=== PATIENT | female | born 1950 | race Caucasian/White ===

== ENCOUNTER → 2016-05-19 | Outpatient (CLI) | payer BC ==
[~2016-05-19] MED LIST: CALC600T9 PO; CHOL20007 PO; EVS60 PO; FSM70 PO; LEVO50TA PO; LRT5 PO; PRMVC TOP; SYN75 PO
--- NOTE | 2016-05-19 13:24 | MAMMOGRAPHY REPORT ---
BILATERAL DIGITAL SCREENING MAMMOGRAM WITH CAD: 05/19/2016 CLINICAL HISTORY: Routine screening examination. TECHNIQUE: Bilateral CC and MLO 2-D digital mammograms were obtained. Current study was also evalua loretta with a Computer Aided Detection (CAD) system. COMPARISON: Comparison is made to exams dated: 05/02/2015 mammogram, 06/09/2012 mammogram, 10/15/2009 [facility], 11/21/2008, and 10/05/2006. BREAST COMPOSITION: The tissue of both breasts is heterogeneously dense, which may obscure small ma sses. FINDINGS: There is an ovoid dense 2.2 cm mass incompletely visualized in the far superior, far post erior left breast, projecting over the pectoralis muscle on the MLO view that could represent an enl arged lymph node. Further evaluation with targeted left axillary ultrasound is recommended. No other suspicious mass, architectural distortion or cluster of microcalcifications is seen in the breasts. IMPRESSION: ACR BI-RADS CATEGORY 0: INCOMPLETE EVALUATION: NEED ADDITIONAL IMAGING EVALUATION The incompletely visualized ovoid dense 2.2 cm mass in the left axilla needs additional evaluation. The patient will be called to schedule an appointment. Approximately 10% of breast cancers are not detected with mammography. A negative mammographic repor t should not delay biopsy if a clinically suggestive mass is present. Izabela Rodriguez M.D. ay/:05/19/2016 07:56:16 Household Appliance Installer: Apurva [place])([place]), [facility] letter sent: Addl Imaging 0 BI-RADS Code: ACR BI-RADS Category 0: Incomplete Evaluation: Need Additional Imaging Evaluation
== END | disposition home or self-care (01) ==
LOC: C.MAMM 07:34
PROVIDERS: ATTEND Family Medicine
DX: Z12.31 Encounter for screening mammogram for malignant neoplasm of breast (principal); N63 Unspecified lump in breast

== ENCOUNTER → 2016-06-02 | Outpatient (CLI) | payer BC ==
--- NOTE | 2016-06-02 13:07 | MAMMOGRAPHY REPORT ---
ULTRASOUND OF LEFT BREAST: 06/02/2016 CLINICAL HISTORY: 66-year-old woman called back from screening mammography for an incompletely visua lized dense ovoid 2.2 cm mass in the far superior and posterior left breast in the axillary region o n the MLO view. COMPARISON: Comparison is made to exams dated: 05/19/2016 mammogram, 05/02/2015 mammogram, 06/09/2012 m ammogram, 10/15/2009 mammogram - [facility], 11/21/2008, and 10/05/2006. FINDINGS: Targeted ultrasound was performed in the left axillary tail and left axilla. In the supe rior left axilla, there is an elongated morphologically normal lymph node with uniform thin peripher al hypoechoic cortex and central echogenic fat. This lymph node measures 22.7 mm in length and has a cortex measuring 2.3 mm, which is within normal limits. This likely correlates with a 2.2 cm mass seen mammographically. Other similar-appearing morphologically normal lymph nodes are seen in the mid left axilla. The next lymph node measures 12.4 mm in length with a thin cortex measuring 1.9 mm and the third largest lymph node measures 11.4 mm in length with a thin cortex measuring 2.2 mm. T here is no evidence of suspicious lymphadenopathy or a suspicious solid or cystic mass. IMPRESSION: ACR BI-RADS CATEGORY 2: BENIGN The 2.2 cm incompletely visualized ovoid mass in the superior left axilla likely correlates with a m orphologically normal 2.3 cm lymph node seen on ultrasound. Other similar-appearing morphologically normal lymph nodes with thin cortices are identified. The remainder of the left axilla. There is no evidence of suspicious lymphadenopathy or sonographic evidence of malignancy. Return to annual mammogram screening schedule is recommended. The patient has been verbally notifie d of the results. Izabela Rodriguez M.D. ay/:06/02/2016 09:06:29 Auto Locator: Apurva [place])([place]), [facility] letter sent: Normal 1/2 BI-RADS Code: ACR BI-RADS Category 2: Benign
== END | disposition home or self-care (01) ==
LOC: C.MAMM 08:35
PROVIDERS: ATTEND Family Medicine
DX: N63 Unspecified lump in breast (principal)

== ENCOUNTER → 2016-06-22 | Day surgery (SDC) | payer BC ==
[2016-06-16 07:36] VITALS: Ht 152.4 cm; Wt 43.6 kg
[~2016-06-22] VITALS: Ht 152.4 cm; Wt 43.6 kg
[~2016-06-22] MED LIST changes: -EVS60 PO; +LIDOCAINE HCL 2% 2 ML VIAL (20MG/ML) ONE; -LRT5 PO; +MIDAZOLAM HCL 1 MG/ML 2ML VIAL ONE; +PROPOFOL IV EMULSION 10 MG/ML 20 ML VIAL IV ONE; +SODIUM CHLORIDE 0.9% 500ML 500 ML IV ONE; -SYN75 PO
[2016-06-22 10:17] VITALS: TEMP 36.4
--- NOTE | 2016-06-22 11:07 | Endo History and Physical ---
History & Physical Date of Service: Jun 22, 2016. Chief Complaint: screening Referring Physician: Dr. Katerina Gupta History of Present Illness 66 yo CF who presents for screening colonoscopy. Past Surgical History Hx Cardiac Surgery: No Hx Internal Defibrillator: No Hx Pacemaker: No Hx Abdominal Surgery: No Hx of Implantable Prosthesis: No Hx Post-Op Nausea and Vomiting: No Hx Cancer Surgery: No Hx Thoracic Surgery: No Hx Orthopedic: No Hx Urinary Tract Surgery: No Family History Colon CA Social History Smoking Status: Former Smoker Hx Substance Use: No Hx Alcohol Use: Yes (1-2 GLASSES WINE/DAY) Allergies Coded Allergies: No Known Allergies (Verified , NONE, 06/22/16) Current Medications Reported Home Medications Medications Dose Route/Sig Max Daily Dose Days Date Category Dose Instructions Vitamin D3 (Cholecalciferol) 2,000 Unit Tab 1 Tab PO QAM 06/16/16 Reported Calcium + D (Calcium Carbonate-Vitamin D) 1 Tab Tab 1 Tab PO HS 06/16/16 Reported Premarin (Estrogens, Conjugated) 14 Appln/30 Gm Cr 1 Appln TOP WK 06/16/16 Reported Synthroid (Levothyroxine Sodium) 50 Mcg Tab 50 Mcg PO QAM 06/16/16 Reported Fosamax * (Alendronate Sodium) 70 Mg Tab 70 Mg PO WK 06/30/08 Reported WEDNESDAY Vital Signs Weight (Kilograms): 43.64 Height (Feet): 5 Height (Inches): 0 Date Time Temp Pulse Resp B/P Pulse Ox O2 Delivery O2 Flow Rate FiO2 06/22/16 10:17 36.4 77 18 113/74 100 Room Air Physical Exam General Appearance: WD/WN, no apparent distress Respiratory/Chest: Auscultation: breath sounds normal Cardiovascular: Heart Auscultation: RRR Abdomen: Bowel Sounds: normal Inspection & Palpation: soft, non-distended, no tenderness, guarding & rebound Assessment and Plan Assessment: 66 yo CF who presents for screening colonoscopy. Plan: Proceed with colonoscopy.
--- NOTE | 2016-06-22 11:30 | Discharge Instructions ---
Endoscopy Patient Instructions Date / Procedure(s) Performed Jun 22, 2016. Colonoscopy Allergy Information Coded Allergies: No Known Allergies (Verified , NONE, 06/22/16) Discharge Date / Findings Jun 22, 2016. Internal and External hemorrhoids Medication Instructions OK to resume all medications today as prescribed. Reported Home Medications Medications Dose Route/Sig Max Daily Dose Days Date Category Dose Instructions Vitamin D3 (Cholecalciferol) 2,000 Unit Tab 1 Tab PO QAM 06/16/16 Reported Calcium + D (Calcium Carbonate-Vitamin D) 1 Tab Tab 1 Tab PO HS 06/16/16 Reported Premarin (Estrogens, Conjugated) 14 Appln/30 Gm Cr 1 Appln TOP WK 06/16/16 Reported Synthroid (Levothyroxine Sodium) 50 Mcg Tab 50 Mcg PO QAM 06/16/16 Reported Fosamax * (Alendronate Sodium) 70 Mg Tab 70 Mg PO WK 06/30/08 Reported WEDNESDAY Provider Instructions Activity Restrictions - No exercising or heavy lifting for 24 hours. - Do not drink alcohol the day of the procedure. - Do not drive a car or operate machinery until the day after the procedure. - Do not make any important decisions or sign important papers in 24 hours after the procedure. Following Day: - Return to full activity which may include returning to work/school. Diet Start your diet with liquids and light foods (jello, soup, juice, toast). Then eat your usual diet if not nauseated. Treatment For Common After Affects For mild abdominal pain, bloating, or excessive gas: - Rest - Eat lightly - Lie on right side Follow-Up Information Follow-up with Dr. Katerina Gupta as scheduled Anesthesia Information What You Should Know You have had a procedure that required some medicine to reduce anxiety and discomfort. This treatment is called moderate sedation. After receiving the treatment, you may be sleepy, but you will be able to breathe on your own. The effects of the treatment may last for several hours. Follow these instructions along with Activity/Diet recommendations noted above: * Do NOT do anything where dizziness or clumsiness would be dangerous. * Rest quietly at home today, then you can be up and about tomorrow. * Have a responsible person stay with you the rest of today. * You may have had an I.V. today. If so, you may take the dressing off later today. Recommendations Call your doctor if: * Trouble breathing * Continuous vomiting for more than 24 hours * Temperature above 101 degrees * Severe abdominal pain or bloating * Pain not relieved by pain medicine ordered * There is increased drainage or redness from any incision * A large amount of rectal bleeding greater than 2-3 tablespoons. (If you had a polyp/s removed or have hemorrhoids, a small amount of blood - from the rectum is to be expected.) * You have any unanswered questions or concerns. IN THE EVENT OF A SERIOUS EMERGENCY, GO TO THE NEAREST EMERGENCY ROOM Your discharge instructions were prepared by provider Serjio Vazquez. Patient Instructions Signature Page Pippa Hudson Patient (or Guardian) Signature/Date: I have read and understand the instructions given to me by my caregivers. Caregiver/RN/Doctor Signature/Date: The above-named patient and/or guardian has received patient instructions on this date. + Original Patient Signature Page (only) stays with chart. Please make copy for patient.
--- NOTE | 2016-06-22 11:33 | GI REPORT ---
Procedure Date: 06/22/2016 10:41 AM Procedure: Colonoscopy Indications: Screening for colorectal malignant neoplasm Medicines: Monitored Anesthesia Care Complications: No immediate complications. Estimated Blood Loss: Estimated blood loss: none. Procedure: Pre-Anesthesia Assessment: - Prior to the procedure, a History and Physical was performed, and patient medications and allergies were reviewed. The patient's tolerance of previous anesthesia was also reviewed. The risks and benefits of the procedure and the sedation options and risks were discussed with the patient. All questions were answered, and informed consent was obtained. Prior Anticoagulants: The patient has taken no previous anticoagulant or antiplatelet agents. ASA Grade Assessment: II - A patient with mild systemic disease. After reviewing the risks and benefits, the patient was deemed in satisfactory condition to undergo the procedure. After I obtained informed consent, the scope was passed under direct vision. Throughout the procedure, the patient's blood pressure, pulse, and oxygen saturations were monitored continuously. The scope was introduced through the anus and advanced to the terminal ileum. The colonoscopy was performed without difficulty. The patient tolerated the procedure well. The quality of the bowel preparation was good. The terminal ileum, ileocecal valve, appendiceal orifice, and rectum were photographed. Findings: Non-bleeding external and internal hemorrhoids were found during retroflexion and during perianal exam. The hemorrhoids were small. The exam was otherwise without abnormality. Impression: - Non-bleeding external and internal hemorrhoids. - The examination was otherwise normal. - No specimens collected. Recommendation: - Resume previous diet. - Continue present medications. - Repeat colonoscopy in 10 years for surveillance. - Return to primary care physician as previously scheduled. Serjio Vazquez, DO 06/22/2016 11:33:00 AM This report has been signed electronically. Note Initiated On: 06/22/2016 10:41 AM I attest to the content of the Intraoperative Record and orders documented therein, exceptions below
--- NOTE | 2016-06-22 12:05 | Anesthesiology Progress Note ---
Anesthesia Post Op Note Date & Time Jun 22, 2016 at 12:06 Vital Signs Pain Intensity: 0 Vital Signs Past 12 Hours Date Time Temp Pulse Resp B/P Pulse Ox O2 Delivery O2 Flow Rate FiO2 06/22/16 11:58 69 18 120/74 100 Room Air 06/22/16 11:48 64 18 91/48 100 Room Air 06/22/16 11:40 66 18 93/57 100 Room Air 06/22/16 11:35 72 18 85/45 100 Room Air 06/22/16 10:17 36.4 77 18 113/74 100 Room Air Notes Mental Status: alert / awake / arousable, participated in evaluation Pt Amnestic to Procedure: Yes Nausea / Vomiting: adequately controlled Pain: adequately controlled Airway Patency, RR, SpO2: stable & adequate BP & HR: stable & adequate Hydration State: stable & adequate Anesthetic Complications: no major complications apparent
[2016-06-22 12:08] VITALS: BP 105/77; PULSE 66; O2SAT 100
== END | disposition home or self-care (01) ==
LOC: C.GI 09:47
PROVIDERS: ATTEND Internal Medicine
DX: Z12.11 Encounter for screening for malignant neoplasm of colon (principal); K64.8 Other hemorrhoids; Z80.0 Family history of malignant neoplasm of digestive organs; Z87.891 Personal history of nicotine dependence

== ENCOUNTER → 2017-01-11 | Outpatient (CLI) | payer BC ==
[~2017-01-11] MED LIST changes: -LIDOCAINE HCL 2% 2 ML VIAL (20MG/ML) ONE; -MIDAZOLAM HCL 1 MG/ML 2ML VIAL ONE; -PROPOFOL IV EMULSION 10 MG/ML 20 ML VIAL IV ONE; -SODIUM CHLORIDE 0.9% 500ML 500 ML IV ONE
[2017-01-11 10:25] LABS: THYROID STIMULATING HORMONE 3.33 uIu/ml (0.300-4.500)
[2017-01-15 02:36] LABS: IGA SERUM 179 mg/dL (81-463); TIS TRANS IGA 1 U/mL (<4)
== END | disposition home or self-care (01) ==
LOC: C.LAB1850 08:00
PROVIDERS: ATTEND Family Medicine Adult Medicine
DX: E03.9 Hypothyroidism, unspecified (principal); Z13.220 Encounter for screening for lipoid disorders; Z13.0 Encounter for screening for diseases of the blood and blood-forming organs and certain disorders involving the immune mechanism

== ENCOUNTER → 2017-06-08 | Outpatient (CLI) | payer OTHER | END | disposition home or self-care (01) | LOC: C.MAMM 10:27 | PROVIDERS: ATTEND Family Medicine | DX: M81.0 Age-related osteoporosis without current pathological fracture (principal); M85.89 Other specified disorders of bone density and structure, multiple sites ==

== ENCOUNTER → 2017-06-15 | Outpatient (CLI) | payer OTHER ==
--- NOTE | 2017-06-15 15:24 | MAMMOGRAPHY REPORT ---
BILATERAL DIGITAL SCREENING MAMMOGRAM TOMOSYNTHESIS WITH CAD: 06/15/2017 CLINICAL HISTORY: Routine screening. Patient has no complaints. TECHNIQUE: Breast tomosynthesis in addition to standard 2D mammography was performed. Current study was also evaluated with a Computer Aided Detection (CAD) system. COMPARISON: Comparison is made to exams dated: 05/19/2016 mammogram, 05/02/2015 mammogram, 06/09/2012 ma mmogram, 10/15/2009 mammogram - [facility], 11/21/2008, and 11/14/2008. BREAST COMPOSITION: The tissue of both breasts is heterogeneously dense, which may obscure small mas ses. FINDINGS: The glandular pattern is similar to prior mammograms. There are diffuse benign-appearing r ound microcalcifications throughout both breasts. No new suspicious mass, architectural distortion o r cluster of microcalcifications is seen. IMPRESSION: ACR BI-RADS CATEGORY 1: NEGATIVE There is no mammographic evidence of malignancy. A 1 year screening mammogram is recommended. The pa tient will receive written notification of the results. Approximately 10% of breast cancers are not detected with mammography. A negative mammographic report should not delay biopsy if a clinically suggestive mass is present. Izabela Rodriguez M.D. ay/:06/15/2017 09:11:38 Video Game Technician: Apurva [place])([place]), [facility] letter sent: Normal 1/2 BI-RADS Code: ACR BI-RADS Category 1: Negative
== END | disposition home or self-care (01) ==
LOC: C.MAMM 08:52
PROVIDERS: ATTEND Obstetrics & Gynecology
DX: Z12.31 Encounter for screening mammogram for malignant neoplasm of breast (principal)